=== PATIENT | male | born 1945 | race American Indian/Alaskan Native ===

== ENCOUNTER 2018-11-18 11:05 | Observation (INO) | payer MEDICARE, OTHER ==
--- NOTE | 2018-11-18 11:19 | ED PDOC ---
HPI:STROKE - Time Time: 11:16 - Historian Historian: Patient, Family - Chief Complaint Chief Complaint: Difficulty standing - Onset Date: 11/18/18 Time: 10:45 - Timing Timing: Improved - TPA Positive for Contraindication: Yes Reason tPA is not being Administered: nih 0; head injury with hematoma 1 month ago - Notes: Notes:: Pt. was at a meeting with his and suddenly got sleepy and off balance. states he was having trouble getting words out. When pt. seen, he was able to get all words out and comprehend. Pt. only complains of feeling off balance. No numbness, tingles, weakness, headaches, chest pain, dyspnea, fever. Has had several tia and last was 1 month ago when he passed out. He got a hematoma on his head. NIHSS Stroke Scale - Date/Time Evaluation Performed Date Performed: 11/18/18 Time Performed: 11:11 When Was NIHSS Performed: Baseline - How Severe is the Stroke Level of Consciousness: 0=Alert LOC to Questions: 0=Both comments correct LOC to commands: 0=Obeys both correctly Best Gaze: 0=Normal Visual: 0=No visual loss Facial: 0=Normal Motor Arm - Left: 0=No drift Motor Arm - Right: 0=No drift Motor Leg - Left: 0=No drift Motor Leg - Right: 0=No drift Limb Ataxia: 0=Absent Sensory: 0=Normal Best Language: 0=No aphasia Dysarthia: 0=Normal articulation Extinction & Inattention (Neglect): 0=Normal, no object Score: 0 rTPA Inclusion/Exclusion - Refusal of Treatment Patient Refused Treatment: No - Inclusion Criteria for Altepase Patient is 18 years or Older: Yes The Clinical Diagnosis of Ischemic Stroke That is Causing a Potentially Disabling Neurological Deficit: No Time of Onset is Well Established to be Less Than 270 Minute Before Treatment Would Begin: Yes Risk/Benefit Discussed With Patient/Family Member Present: No Past Medical History Reviewed: Nursing Documentation, Vital Signs Vital Signs: Last Vital Signs Temp Pulse 57 L 11/18/18 11:11 Resp 16 11/18/18 11:11 BP 127/87 11/18/18 11:11 Pulse Ox 100 11/18/18 11:11 - Medical History PMH: HTN, Hypercholesterolemia, TIA - Surgical History Surgical History: Appendectomy, Tonsillectomy - Family History Family History: States: Unknown Family Hx - Living Arrangements Living Arrangements: With Family - Immunization History Hx Tetanus Toxoid Vaccination: No Hx Influenza Vaccination: Yes Hx Pneumococcal Vaccination: Yes - Home Medications Home Medications: Ambulatory Orders Medication Instructions Recorded Metoprolol Tartrate 12.5 mg PO Q12 12/28/16 Aspirin [Ecotrin] 81 mg PO DAILY 11/18/18 Simvastatin [Zocor] 40 mg PO HS 11/18/18 - Allergies Allergies/Adverse Reactions: Allergies Allergy/AdvReac Type Severity Reaction Status Date / Time iodine Allergy Verified 12/28/16 18:08 shellfish derived Allergy Verified 12/28/16 18:08 Review of Systems ROS Statement: Except As Marked, All Systems Reviewed And Found Negative Neurological: Positive for: Incoordination Physical Exam - Reviewed Nursing Documentation Reviewed: Yes Vital Signs Reviewed: Yes - Physical Exam Appears: Positive for: Non-toxic Head Exam: Positive for: ATRAUMATIC, NORMAL INSPECTION, NORMOCEPHALIC Skin: Positive for: Normal Color, Warm, DRY Eye Exam: Positive for: EOMI, Normal appearance, PERRL ENT: Positive for: Normal ENT Inspection Neck: Positive for: Normal, Painless ROM Cardiovascular/Chest: Positive for: Regular Rate, Rhythm Respiratory: Positive for: CNT, Normal Breath Sounds Gastrointestinal/Abdominal: Positive for: Normal Exam, Soft. Negative for: Tenderness Back: Positive for: Normal Inspection. Negative for: L CVA Tenderness, R CVA Tenderness Extremity: Positive for: Normal ROM. 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 Negative for: Motor/Sensory Deficits, Facial Droop - Laboratory Results Result Diagrams: 11/18/18 11:26 11/18/18 11:26 Interpretation Of Abn Labs: no acute - ECG ECG: Positive for: Interpreted By Me, Viewed By Me ECG Rhythm: Positive for: Normal QRS, Normal ST Segment, Sinus Rhythm O2 Sat by Pulse Oximetry: 100 Pulse Ox Interpretation: Normal - Radiology X-Ray: Interpreted by Me, Viewed By Me X-Ray Interpretation: No Acute Disease - CT Scan/US ct Other Rad Studies (CT/US): Read By Radiologist Other Rad Interpretation: no acute - Progress ED Course And Treament: 1135: Stable. AAOx3. Spoke with Dr. Vega. Does not meet criteria for thrombolytics. Will get MRI. No cta as pt. is allergic to iodine. Pt. took home lipitor and asa today. 1320: Spoke with Dr. Grimm. Will admit. Pt. fees better. AAOx3. Disposition - Clinical Impression Clinical Impression: TIA (transient ischemic attack) - Patient ED Disposition Is Patient to be Admitted: Yes Counseled Patient/Family Regarding: Studies Performed, Diagnosis - Disposition Disposition Time: 11:15 Condition: FAIR - Pt Status Changed To: Hospital Disposition Of: Observation - POA Present On Arrival: None
[2018-11-18 11:32] VITALS: BMI 24.0
[2018-11-18 11:41] LABS: BASO % 0.6 % (0.0-2.0); EOS # 0.1 K/uL (0.0-0.7); EOS % 2.6 % (0.0-4.0); HEMOGLOBIN 13.6 g/dL (12.0-18.0); LYMPH # 1.7 K/uL (1.0-4.3); LYMPH % 36.8 % (20.0-40.0); MEAN CELL VOLUME 90.7 fl (80.0-94.0); MEAN CORPUSCULAR HEMOGLOBIN 31.2 pg (27.0-31.0); MEAN CORPUSCULAR HGB CONC 34.4 g/dL (33.0-37.0); MONO # 0.4 K/uL (0.0-0.8); MONO % 9.6 % (0.0-10.0); NEUT # 2.3 K/uL (1.8-7.0); NEUT % 50.4 % (50.0-75.0); NRBC % 0.1 % (0.0-0.0); RBC 4.37 Mil/uL (4.40-5.90); WHITE BLOOD COUNT 4.6 K/uL (4.8-10.8)
[2018-11-18 11:43] LABS: PROTHROMBIN TIME 11.9 Seconds (9.8-13.1)
[2018-11-18 11:45] LABS: PARTIAL THROMBOPLASTIN TIME 34.2 Seconds (25.6-37.1)
[2018-11-18 11:48] LABS: ALB/GLOB RATIO 1.4 (1.0-2.1); ALBUMIN 4.1 g/dL (3.5-5.0); BLOOD UREA NITROGEN 15 mg/dl (9-20); GFR NON-AFRICAN AMERICAN > 60; HDL CHOLESTEROL 51 MG/DL (30-70)
--- NOTE | 2018-11-18 11:48 | CT ---
Date of service: 11/18/2018 PROCEDURE: CT HEAD WITHOUT CONTRAST. HISTORY: TIA, initial exam COMPARISON: None available. TECHNIQUE: Axial computed tomography images were obtained through the head/brain without intravenous contrast. Radiation dose: Total exam DLP = 1177.04 mGy-cm. This CT exam was performed using one or more of the following dose reduction techniques: Automated exposure control, adjustment of the mA and/or kV according to patient size, and/or use of iterative reconstruction technique. FINDINGS: HEMORRHAGE: No intracranial hemorrhage. BRAIN: No mass effect or edema. No atrophy or chronic microvascular ischemic changes. VENTRICLES: Unremarkable. No hydrocephalus. CALVARIUM: Unremarkable. PARANASAL SINUSES: Minimal chronic sphenoid and bilateral maxillary sinusitis. MASTOID AIR CELLS: Unremarkable as visualized. No inflammatory changes. OTHER FINDINGS: None. IMPRESSION: No intracranial mass, hemorrhage or evidence of acute infarct. Chronic paranasal sinusitis. Otherwise unremarkable. The findings in this examination were discussed by telephone with Dr. Mancera At 11:32 a.m. on 11/18/2018.
[2018-11-18] MEDS: Sodium Chloride 0.9% 1,000 ML IV SCH ×2 (11:50→23:31)
[2018-11-18 11:58] LABS: LDL CHOLESTEROL 74 mg/dL (0-129)
[2018-11-18 11:59] LABS: ALT/SGPT 27 U/L (21-72); AST/SGOT 32 U/L (17-59)
--- NOTE | 2018-11-18 13:11 | RAD ---
Date of service: 11/18/2018 HISTORY: Code Stroke COMPARISON: 04/08/2010 TECHNIQUE: 1 view obtained. FINDINGS: LUNGS: No active pulmonary disease. PLEURA: No significant pleural effusion identified, no pneumothorax apparent. CARDIOVASCULAR: No aortic atherosclerotic calcification present. Normal cardiac size. No pulmonary vascular congestion. OSSEOUS STRUCTURES: No significant abnormalities. VISUALIZED UPPER ABDOMEN: Normal. OTHER FINDINGS: None. IMPRESSION: No active disease.
--- NOTE | 2018-11-18 15:47 | MRI ---
Date of service: 11/18/2018 PROCEDURE: MRI BRAIN WITHOUT CONTRAST HISTORY: cva COMPARISON: Head CT without contrast 11/18/2018. TECHNIQUE: Multiplanar, multisequence MR images of the brain were obtained without intravenous contrast enhancement. FINDINGS: HEMORRHAGE: None DWI: No evidence of an acute or early subacute infarction. BRAIN PARENCHYMA: Good corticomedullary differentiation is seen. Proportional, diffuse expansion of the ventriculosulcal and cisternal spaces is appreciated with white matter signal changes compatible with diffuse cerebral atrophy and chronic microangiopathy. No suspicious extra-axial fluid collection is identified and the midline brain anatomy appears grossly nonfocal as imaged. There is no mass effect throughout VENTRICLES: Unremarkable. No hydrocephalus. CRANIUM: Unremarkable. ORBITS: Grossly unremarkable. PARANASAL SINUSES/MASTOIDS: Clear VASCULAR SYSTEM: Skull base flow voids intact. OTHER FINDINGS: None. IMPRESSION: No acute or subacute brain infarction appreciable. No mass effect or cortical edema. Age-appropriate age related neuro degenerative changes are again identified.
--- NOTE | 2018-11-18 23:00 | CARD ---
APPROVED REPORT Date of service: 11/18/2018 EKG Measurement Heart [id number] <Conclusion> Sinus bradycardia Otherwise normal ECG
[2018-11-19 05:45] LABS: BASO % 0.6 % (0.0-2.0); EOS # 0.2 K/uL (0.0-0.7); EOS % 3.1 % (0.0-4.0); HEMOGLOBIN 13.8 g/dL (12.0-18.0); LYMPH % 33.2 % (20.0-40.0); MEAN CELL VOLUME 90.9 fl (80.0-94.0); MEAN CORPUSCULAR HEMOGLOBIN 30.8 pg (27.0-31.0); MEAN CORPUSCULAR HGB CONC 33.9 g/dL (33.0-37.0); MEAN PLATELET VOLUME 7.9 fl (7.2-11.7); MONO # 0.5 K/uL (0.0-0.8); MONO % 7.9 % (0.0-10.0); NEUT # 3.3 K/uL (1.8-7.0); NEUT % 55.2 % (50.0-75.0); NRBC % 0.2 % (0.0-0.0); RBC 4.46 Mil/uL (4.40-5.90)
[2018-11-19 06:14] LABS: LDL CHOLESTEROL 73 mg/dL (0-129)
[2018-11-19 06:24] LABS: ALB/GLOB RATIO 1.4 (1.0-2.1); ALBUMIN 3.6 g/dL (3.5-5.0); ALT/SGPT 33 U/L (21-72); AST/SGOT 23 U/L (17-59); BLOOD UREA NITROGEN 17 mg/dl (9-20); CALCIUM 8.7 mg/dL (8.4-10.2); GFR NON-AFRICAN AMERICAN > 60; HDL CHOLESTEROL 48 MG/DL (30-70)
[2018-11-19] MEDS: Enoxaparin 40 mg Syringe SC SCH (09:56)
--- NOTE | 2018-11-19 13:15 | CP.PCM.CON ---
History of Present Illness - History of Present Illness History of Present Illness: 73 yo male past medical history of SVT and recurrent TIAs. Symptoms suggestive of TIA with inability to answer questions and text correctly on phone. No syncope or chest pain. Comfortable at rest alert , oriented and verbal Past Patient History - Infectious Disease Hx of Infectious Diseases: None - Past Medical History & Family History Past Medical History?: Yes - Past Social History Smoking Status: Never Smoked - CARDIAC Hx Cardiac Disorders: Yes (htn,hld) Hx Hypertension: Yes - PULMONARY Hx Respiratory Disorders: No - NEUROLOGICAL Hx Neurological Disorder: Yes (tia) Hx Transient Ischemic Attacks (TIA): Yes - HEENT Hx HEENT Problems: No - RENAL Hx Chronic Kidney Disease: No - ENDOCRINE/METABOLIC Hx Endocrine Disorders: No - HEMATOLOGICAL/ONCOLOGICAL Hx Blood Disorders: No Hx AIDS: No Hx Human Immunodeficiency Virus (HIV): No - INTEGUMENTARY Hx Dermatological Problems: No - MUSCULOSKELETAL/RHEUMATOLOGICAL Hx Musculoskeletal Disorders: No Hx Falls: No - GASTROINTESTINAL Hx Gastrointestinal Disorders: No - GENITOURINARY/GYNECOLOGICAL Hx Genitourinary Disorders: No - PSYCHIATRIC Hx Psychophysiologic Disorder: No Hx Substance Use: No - SURGICAL HISTORY Hx Surgeries: Yes Hx Appendectomy: Yes Hx Tonsillectomy: Yes - ANESTHESIA Hx Anesthesia: Yes Hx Anesthesia Reactions: No Meds Allergies/Adverse Reactions: Allergies Allergy/AdvReac Type Severity Reaction Status Date / Time iodine Allergy Verified 12/28/16 18:08 shellfish derived Allergy Verified 12/28/16 18:08 - Medications Medications: Current Medications Aspirin (Aspirin) 325 mg PO DAILY [facility] Last Admin: 11/19/18 10:01 Dose: 325 mg Atorvastatin Calcium (Lipitor) 80 mg PO [facility] Enoxaparin Sodium (Lovenox) 40 mg SC DAILY [facility]; Protocol Last Admin: 11/19/18 09:56 Dose: 40 mg Sodium Chloride (Sodium Chloride 0.9%) 1,000 mls @ 100 mls/hr IV .Q10H [facility] Last Admin: 11/18/18 23:31 Dose: 100 mls/hr Metoprolol Tartrate (Lopressor) 12.5 mg PO Q12 [facility] Last Admin: 11/19/18 09:55 Dose: 12.5 mg Physical Exam - Neck Exam Neck exam: Positive for: Normal Inspection - Respiratory Exam Respiratory Exam: Clear to Auscultation Bilateral - Cardiovascular Exam Cardiovascular Exam: REGULAR RHYTHM - GI/Abdominal Exam GI & Abdominal Exam: Normal Bowel Sounds - Extremities Exam Extremities exam: Positive for: normal inspection Results - Vital Signs Recent Vital Signs: Last Vital Signs Temp 97.6 F 11/19/18 12:19 Pulse 53 L 11/19/18 12:19 Resp 18 11/19/18 12:19 BP 159/82 H 11/19/18 12:19 Pulse Ox 95 11/19/18 12:19 - Labs Result Diagrams: 11/19/18 04:40 11/19/18 04:40 Labs: Laboratory Results - last 24 hr 11/18/18 11/18/18 11/19/18 11:26 11:26 04:40 WBC RBC Hgb Hct MCV MCH MCHC RDW Plt Count MPV Neut % (Auto) Lymph % (Auto) [place] % (Auto) Eos % (Auto) Baso % (Auto) Neut # (Auto) Lymph # (Auto) [place] # (Auto) Eos # (Auto) Baso # (Auto) Sodium Potassium 4.5 Chloride Carbon Dioxide Anion Gap BUN Creatinine Est GFR ( Amer) Est GFR (Non-Af Amer) Random Glucose Hemoglobin A1c 5.5 Calcium Total Bilirubin AST ALT Alkaline Phosphatase Total Protein Albumin Globulin Albumin/Globulin Ratio Triglycerides Cholesterol LDL Cholesterol Direct HDL Cholesterol Blood Type Confirm A POSITIVE 11/19/18 11/19/18 04:40 04:40 WBC 6.0 RBC 4.46 Hgb 13.8 Hct 40.6 MCV 90.9 MCH 30.8 MCHC 33.9 RDW 14.0 Plt Count 225 MPV 7.9 Neut % (Auto) 55.2 Lymph % (Auto) 33.2 [place] % (Auto) 7.9 Eos % (Auto) 3.1 Baso % (Auto) 0.6 Neut # (Auto) 3.3 Lymph # (Auto) 2.0 [place] # (Auto) 0.5 Eos # (Auto) 0.2 Baso # (Auto) 0.0 Sodium 138 Potassium 4.0 Chloride 104 Carbon Dioxide 28 Anion Gap 10 BUN 17 Creatinine 0.8 Est GFR ( Amer) > 60 Est GFR (Non-Af Amer) > 60 Random Glucose 100 Hemoglobin A1c Calcium 8.7 Total Bilirubin 0.4 AST 23 ALT 33 Alkaline Phosphatase 33 L Total Protein 6.3 Albumin 3.6 Globulin 2.7 Albumin/Globulin Ratio 1.4 Triglycerides 60 Cholesterol 136 LDL Cholesterol Direct 73 HDL Cholesterol 48 Blood Type Confirm Assessment & Plan - Assessment and Plan (Free Text) Assessment: Symptoms suggestive of TIA ECHO reviewed no source of embolus, normal LVEF, AV sclerosis, Mild MR Bp normal EKG Sinus Bradycardia LDL 75mg/dl Plan: Await Neurology input Review of carotid/ MRI Defer to Neurolology re: adjustment anticoagulation regimen
--- NOTE | 2018-11-19 16:21 | US ---
Date of service: 11/19/2018 PROCEDURE: Duplex ultrasound of the carotid and vertebral arteries. HISTORY: TIA COMPARISON: Carotid ultrasound 04/08/2010. TECHNIQUE: Grayscale and duplex Doppler evaluation of the cervical carotid and vertebral arteries were performed. The common carotid, carotid bifurcations and cervical ICA and proximal ECA were evaluated. The vertebral arteries were evaluated for gross patency and direction. FINDINGS: RIGHT CAROTID ARTERIES: Common Carotid Artery: Normal. Maximal flow velocity of 58.1 cm/s. Carotid Bifurcation: Normal. Internal Carotid Artery:Normal. Maximal flow velocity of 63.0 cm/s. External Carotid Artery (proximal branches): Limited proximal calcific atherosclerosis. Maximal flow velocity of 77.6 cm/s. ICA/CCA Ratio: 1.1 LEFT CAROTID ARTERIES: Common Carotid Artery: Normal. Maximal flow velocity of 57.0 cm/s. Carotid Bifurcation: Normal. Internal Carotid Artery:Normal. Maximal flow velocity of 74.8 cm/s. External Carotid Artery (proximal branches): Mild proximal mixed atherosclerosis without significant stenosis. Maximal flow velocity of 63.9 cm/s. ICA/CCA Ratio: 1.3 VERTEBRAL ARTERIES: Right Vertebral Artery: Patent. Antegrade flow. Left Vertebral Artery: Patent. Antegrade flow. OTHER FINDINGS: No atherosclerotic calcification present IMPRESSION: No significant stenosis in the cervical internal carotid arteries and bilateral vertebral arteries with limited interval atherosclerosis of the proximal bilateral external carotid arteries identified.
--- NOTE | 2018-11-19 22:05 | CARD ---
APPROVED REPORT Date of service: 11/19/2018 EXAM: Two-dimensional and M-mode echocardiogram with Doppler and color Doppler. Other Information Quality : GoodRhythm : NSR INDICATION CVA/TIA 2D DIMENSIONS IVSd1.01 (0.7-1.1cm)LVDd4.33 (3.9-5.9cm) LVOT Diameter2.60 (1.8-2.4cm)PWd1.06 (0.7-1.1cm) IVSs1.28 (0.8-1.2cm)LVDs2.35 (2.5-4.0cm) FS (%) 45.8 %PWs0.83 (0.8-1.2cm) M-Mode DIMENSIONS Left Atrium (MM)4.24 (2.5-4.0cm)IVSd0.85 (0.7-1.1cm) Aortic Root3.62 (2.2-3.7cm)LVDd5.65 (4.0-5.6cm) Aortic Cusp Exc.1.91 (1.5-2.0cm)PWd0.82 (0.7-1.1cm) IVSs1.62 cmFS (%) 54 % LVDs2.59 (2.0-3.8cm)PWs1.56 cm Aortic Valve AoV Peak Kriivcgq437.7cm/sAoV VTI25.2cmAO Peak GR.5mmHg LVOT Peak Rzsucnjq61.9cm/sLVOT VTI16.21cmAO Mean GR.3mmHg BRANT (VMAX)1.38ww0DMX (VTI)2.00cm2 Mitral Valve MV E Mnojjqga15.8cm/sMV DECEL [id number] A Xkvkoklv76.3cm/s MV XUU45gqN/A ratio1.9MVA (PHT)5.09cm2 TDI Lateral E' Peak V8.39cm/sMedial E' Peak V10.10cm/sE/Lateral E'11.4 E/Medial E'9.5 Tricuspid Valve TR Peak Gmbmagez128gv/sRAP ENATUFVI69nvGtEC Peak Gr.23mmHg IVDI64zrBd LEFT VENTRICLE The left ventricle is normal size. There is normal left ventricular wall thickness. The left ventricular systolic function is normal. The estimated ejection fraction is 55-60% No regional wall motion abnormalities noted.. Transmitral Doppler flow pattern is Grade II-pseudonormal filling dynamics. No left ventricle thrombus noted on this study. There is no ventricular septal defect visualized. There is no left ventricular aneurysm. There is no mass noted in the left ventricle. RIGHT VENTRICLE The right ventricle is normal size. There is normal right ventricular wall thickness. The right ventricular systolic function is normal. ATRIA The left atrium is mildly dilated. The right atrium size is normal. The interatrial septum is intact with no evidence for an atrial septal defect. AORTIC VALVE The aortic valve is normal in structure. Mild aortic regurgitation is present. There is no aortic valvular stenosis. There is no aortic valvular vegetation. MITRAL VALVE The mitral valve is normal in structure. There is no evidence of mitral valve prolapse. There is no mitral valve stenosis. There is mild mitral valve regurgitation noted. TRICUSPID VALVE The tricuspid valve is normal in structure. There is mild tricuspid valve regurgitation noted. RVSP is calculated at 28 mm Hg. There is no tricuspid valve prolapse or vegetation. There is no tricuspid valve stenosis. PULMONIC VALVE The pulmonary valve is normal in structure. There is no pulmonic valvular regurgitation. There is no pulmonic valvular stenosis. GREAT VESSELS The aortic root is mildly dilated. The ascending aorta is normal in size. The pulmonary artery is normal. The IVC is normal in size and collapses >50% with inspiration. PERICARDIAL EFFUSION There is no pericardial effusion. There is no pleural effusion. <Conclusion> The estimated ejection fraction is 55-60% Transmitral Doppler flow pattern is Grade II-pseudonormal filling dynamics. The left atrium is mildly dilated. Mild aortic regurgitation is present. There is mild mitral valve regurgitation noted. There is mild tricuspid valve regurgitation noted. RVSP is calculated at 28 mm Hg. The aortic root is mildly dilated.
[2018-11-20 00:05] VITALS: RESP 18
[2018-11-20] MEDS: Enoxaparin 40 mg Syringe SC SCH (08:21)
[2018-11-20 11:49] VITALS: O2SAT 98
--- NOTE | 2018-11-20 15:56 | CP.PCM.DIS ---
Provider - Provider Date of Admission: 11/18/18 14:53 Attending physician: Wilfred Grimm MD Consults: 11/18/18 11:15 Stroke Team Consult Stat Comment: Consulting Provider: Neurohospitalist Consulting Physician: NEUROHOSP Neurohospitalist for Consult: Jamel Carcamo Neurohospitalist for Consult: Rema Vega Reason for Consult: off balance sudden 11/18/18 20:49 Neurology Consult Routine Comment: Consulting Provider: Rema Vega Consulting Physician: Rema Vega Reason for Consult: TIA 11/19/18 10:53 Cardiology Consult Routine Comment: Consulting Provider: Nikhil Rivera Consulting Physician: Nikhil Rivera Reason for Consult: near syncope Time Spent in preparation of Discharge (in minutes): 25 Diagnosis - Discharge Diagnosis (1) Altered mental status Status: Acute (2) H/O supraventricular tachycardia Status: Acute (3) H/O cardiac radiofrequency ablation Status: Acute (4) TIA (transient ischemic attack) Status: Acute Hospital Course - Lab Results Lab Results: Most Recent Lab Values WBC 6.0 K/uL (4.8-10.8) 11/19/18 04:40 RBC 4.46 Mil/uL (4.40-5.90) 11/19/18 04:40 Hgb 13.8 g/dL (12.0-18.0) 11/19/18 04:40 Hct 40.6 % (35.0-51.0) 11/19/18 04:40 MCV 90.9 fl (80.0-94.0) 11/19/18 04:40 MCH 30.8 pg (27.0-31.0) 11/19/18 04:40 MCHC 33.9 g/dL (33.0-37.0) 11/19/18 04:40 RDW 14.0 % (11.5-14.5) 11/19/18 04:40 Plt Count 225 K/uL (130-400) 11/19/18 04:40 MPV 7.9 fl (7.2-11.7) 11/19/18 04:40 Neut % (Auto) 55.2 % (50.0-75.0) 11/19/18 04:40 Lymph % (Auto) 33.2 % (20.0-40.0) 11/19/18 04:40 [place] % (Auto) 7.9 % (0.0-10.0) 11/19/18 04:40 Eos % (Auto) 3.1 % (0.0-4.0) 11/19/18 04:40 Baso % (Auto) 0.6 % (0.0-2.0) 11/19/18 04:40 Neut # (Auto) 3.3 K/uL (1.8-7.0) 11/19/18 04:40 Lymph # (Auto) 2.0 K/uL (1.0-4.3) 11/19/18 04:40 [place] # (Auto) 0.5 K/uL (0.0-0.8) 11/19/18 04:40 Eos # (Auto) 0.2 K/uL (0.0-0.7) 11/19/18 04:40 Baso # (Auto) 0.0 K/uL (0.0-0.2) 11/19/18 04:40 PT 11.9 Seconds (9.8-13.1) 11/18/18 11:26 INR 1.0 11/18/18 11:26 APTT 34.2 Seconds (25.6-37.1) 11/18/18 11:26 Sodium 138 mmol/l (132-148) 11/19/18 04:40 Potassium 4.0 MMOL/L (3.6-5.0) 11/19/18 04:40 Chloride 104 mmol/L (98-107) 11/19/18 04:40 Carbon Dioxide 28 mmol/L (22-30) 11/19/18 04:40 Anion Gap 10 (10-20) 11/19/18 04:40 BUN 17 mg/dl (9-20) 11/19/18 04:40 Creatinine 0.8 mg/dl (0.8-1.5) 11/19/18 04:40 Est GFR ( Amer) > 60 11/19/18 04:40 Est GFR (Non-Af Amer) > 60 11/19/18 04:40 POC Glucose (mg/dL) 96 mg/dL (65-110) 11/18/18 11:10 Random Glucose 100 mg/dL (75-110) 11/19/18 04:40 Hemoglobin A1c 5.5 % (4.2-6.5) 11/18/18 11:26 Calcium 8.7 mg/dL (8.4-10.2) 11/19/18 04:40 Total Bilirubin 0.4 mg/dl (0.2-1.3) 11/19/18 04:40 AST 23 U/L (17-59) 11/19/18 04:40 ALT 33 U/L (21-72) 11/19/18 04:40 Alkaline Phosphatase 33 U/L (38-126) L 11/19/18 04:40 Troponin I < 0.0120 ng/mL (0.00-0.120) 11/18/18 11:26 Total Protein 6.3 G/DL (6.3-8.2) 11/19/18 04:40 Albumin 3.6 g/dL (3.5-5.0) 11/19/18 04:40 Globulin 2.7 gm/dL (2.2-3.9) 11/19/18 04:40 Albumin/Globulin Ratio 1.4 (1.0-2.1) 11/19/18 04:40 Triglycerides 60 mg/DL (0-149) 11/19/18 04:40 Cholesterol 136 mg/dL (0-199) 11/19/18 04:40 LDL Cholesterol Direct 73 mg/dL (0-129) 11/19/18 04:40 HDL Cholesterol 48 MG/DL (30-70) 11/19/18 04:40 Blood Type A POSITIVE 11/18/18 11:17 Blood Type Confirm A POSITIVE 11/19/18 04:40 Antibody Screen Negative 11/18/18 11:17 BBK History Checked No verified bt 11/18/18 11:17 Discharge Exam - Head Exam Head Exam: ATRAUMATIC, NORMAL INSPECTION, NORMOCEPHALIC Discharge Plan - Follow Up Plan Condition: FAIR Disposition: HOME/ ROUTINE Instructions: Transient Ischemic Attack (DC)
--- NOTE | 2018-11-20 15:56 | CP.PCM.HP ---
Past Patient History - Infectious Disease Hx of Infectious Diseases: None - Past Medical History & Family History Past Medical History?: Yes - Past Social History Smoking Status: Never Smoked - CARDIAC Hx Cardiac Disorders: Yes (htn,hld) Hx Hypertension: Yes - PULMONARY Hx Respiratory Disorders: No - NEUROLOGICAL Hx Neurological Disorder: Yes (tia) Hx Transient Ischemic Attacks (TIA): Yes - HEENT Hx HEENT Problems: No - RENAL Hx Chronic Kidney Disease: No - ENDOCRINE/METABOLIC Hx Endocrine Disorders: No - HEMATOLOGICAL/ONCOLOGICAL Hx Blood Disorders: No Hx AIDS: No Hx Human Immunodeficiency Virus (HIV): No - INTEGUMENTARY Hx Dermatological Problems: No - MUSCULOSKELETAL/RHEUMATOLOGICAL Hx Musculoskeletal Disorders: No Hx Falls: No - GASTROINTESTINAL Hx Gastrointestinal Disorders: No - GENITOURINARY/GYNECOLOGICAL Hx Genitourinary Disorders: No - PSYCHIATRIC Hx Psychophysiologic Disorder: No Hx Substance Use: No - SURGICAL HISTORY Hx Surgeries: Yes Hx Appendectomy: Yes Hx Tonsillectomy: Yes - ANESTHESIA Hx Anesthesia: Yes Hx Anesthesia Reactions: No Meds Allergies/Adverse Reactions: Allergies Allergy/AdvReac Type Severity Reaction Status Date / Time iodine Allergy Verified 12/28/16 18:08 shellfish derived Allergy Verified 12/28/16 18:08 Results - Vital Signs Recent Vital Signs: Last Vital Signs Temp 97.5 F L 11/20/18 11:48 Pulse 52 L 11/20/18 11:48 Resp 18 11/20/18 11:48 BP 150/80 11/20/18 11:48 Pulse Ox 98 11/20/18 11:48 - Labs Result Diagrams: 11/19/18 04:40 11/19/18 04:40 Assessment & Plan (1) Altered mental status Status: Acute (2) H/O supraventricular tachycardia Status: Acute (3) H/O cardiac radiofrequency ablation Status: Acute (4) TIA (transient ischemic attack) Status: Acute
[2018-11-20 16:01] VITALS: BP 123/72; PULSE 56; TEMP 97.9
== END 2018-11-20 16:01 | disposition home or self-care (01) ==
LOC: H.ER 11:05 → H.ERHOLD 14:53 → H.TEL 18:20
PROVIDERS: ADMIT Internal Medicine; ATTEND Internal Medicine
DX: G45.9 Transient cerebral ischemic attack, unspecified (principal); R41.82 Altered mental status, unspecified; E78.00 Pure hypercholesterolemia, unspecified; E78.5 Hyperlipidemia, unspecified; I10 Essential (primary) hypertension; Z79.82 Long term (current) use of aspirin; Z86.73 Personal history of transient ischemic attack (TIA), and cerebral infarction without residual deficits; Z90.49 Acquired absence of other specified parts of digestive tract; I47.1 Supraventricular tachycardia; R00.1 Bradycardia, unspecified
CPT/HCPCS: 36415; 70450; 70551; 71045; 80053; 80061; 82948; 83036; 84484; 85025; 85610; 85730; 86850; 86900; 93005; 93306; 93880; 96372; 99285; G0378; J1650; J7030